=== PATIENT | female | born 1955 | race Caucasian/White ===

== ENCOUNTER 2018-03-10 08:04 | Observation (INO) | payer OTHER ==
--- NOTE | 2018-03-10 08:31 | EDPHY ---
HPI/HX/ROS/PE/MDM Narrative: CHIEF COMPLAINT: Dizzy, irregular heart rate HISTORY OF PRESENT ILLNESS: The patient is a 62 y/o female with a history of SVT requiring an ablation and hypertension complaining of an intermittent feeling of dizziness and having an irregular heart beat onset at 07:30 this morning, 1 hour ago. Around 10 months ago she had an ablation following an episode of SVT. Her symptoms today are different as she feels like her heart rate is more irregular than with prior SVT episodes. Last week she felt lightheaded and had palpitations, so Dr. Moreira (her PCP at [place]) monitored the patient with a Holter monitor for 48 hours. [address] to work today, she became lightheaded and dizzy. When she got to work, these symptoms worsened and she developed heart palpations associated with feeling like she might pass out and shortness of breath. She denies chest pain. These symptoms are currently intermittent and last under a minute when they begin. With prior episodes she did not feel like she was going to pass out. Around 1 month ago she stopped taking Eliquis and Bystolic, but started Metoprolol; she denies change in symptoms with change in medications. No fever, chills, vomiting, diarrhea, urinary complaints, headache. Followed by a traffic i manager at [facility]. Followed by Dr. Moreira at [place] ([phone]) REVIEW OF SYSTEMS: Aside from elements discussed in the HPI, a comprehensive 10-point review of systems was reviewed and is negative. PAST MEDICAL HISTORY: SVT requiring ablation, hypertension, breast cancer SOCIAL HISTORY: Friend at bedside, lives in [facility] VITAL SIGNS: Reviewed by me GENERAL: Well-developed, well-nourished, resting comfortably in no respiratory distress. HEENT: Atraumatic. Eyes: No icterus, no injection. Mouth: moist mucous membranes. No erythema or lesions. Neck: supple with no adenopathy. LUNGS: Clear to auscultation bilaterally, no wheezes, rhonchi or rales. CARDIAC: Irregular heart rate with frequent premature beats, no rubs, murmurs or gallops. ABDOMEN: Soft, nontender, nondistended, bowel sounds normal. BACK: No CVA tenderness. EXTREMITIES: No trauma. No edema. Range of motion is normal throughout. NEURO: Alert and oriented, grossly nonfocal. SKIN: Warm and dry, no rash. PSYCHIATRIC: Normal mentation, no agitation. Portions of this note were transcribed by a emergency medicine medical director. I personally performed a history, physical exam, medical decision making, and confirmed accuracy of information the transcribed note. ED Course: The patient is a 62 y/o female with a history of SVT requiring an ablation and hypertension presenting with an intermittent feeling of dizziness and having an irregular heart rate onset at 07:30 this morning, 1 hour ago. On exam she has an irregular heart rate with frequent premature beats. Labs, EKG ordered. 0837: 12-LEAD EKG: Please see the full report in [facility]. My interpretation: Sinus rhythm with a rate of 61, multiple ventricular premature complexes. 0845: Consulted with Dr. Moreira's MARKET RISK SPECIALIST regarding this patient. 0945: Patient is hypertensive 203/105 and becomes bradycardic during her dizzy episodes. 1000: Reassessed patient and discussed laboratory and imaging findings. I have discussed plan for admission which she is comfortable with. 1013: Consulted with hospitalist service, Dr. Burton accepts admission of this patient. Troponin lab ordered; 10mg IV Hydralazine administered prior to being moved to the floor. - Data Points Laboratory Results: Laboratory Results 03/10/18 08:50 03/10/18 08:50 03/10/18 03/10/18 03/10/18 08:54 08:50 08:50 WBC RBC Hgb Hct MCV MCH MCHC RDW Plt Count MPV Neut % (Auto) Lymph % (Auto) [place] % (Auto) Eos % (Auto) Baso % (Auto) Nucleat RBC Rel Count Absolute Neuts (auto) Absolute Lymphs (auto) Absolute Monos (auto) Absolute Eos (auto) Absolute Basos (auto) Absolute Nucleated RBC Immature Gran % Immature Gran # Sodium 143 mEq/L mEq/L (135-145) Potassium 4.2 mEq/L mEq/L (3.3-5.0) Chloride 105 mEq/L mEq/L (97-110) Carbon Dioxide 27 mEq/l mEq/l (22-31) Anion Gap 11 mEq/L mEq/L (8-16) BUN 20 mg/dL mg/dL (7-23) Creatinine 0.9 mg/dL mg/dL (0.6-1.0) Estimated GFR > 60 Glucose 76 mg/dL mg/dL (70-100) Calcium 9.6 mg/dL mg/dL (8.5-10.4) POC Troponin I 0.01 ng/mL ng/mL (0.00-0.08) Troponin I Pending 03/10/18 08:50 WBC 6.03 10^3/uL 10^3/uL (3.80-9.50) RBC 4.36 10^6/uL 10^6/uL (4.18-5.33) Hgb 13.6 g/dL g/dL (12.6-16.3) Hct 40.5 % % (38.0-47.0) MCV 92.9 fL fL (81.5-99.8) MCH 31.2 pg pg (27.9-34.1) MCHC 33.6 g/dL g/dL (32.4-36.7) RDW 13.4 % % (11.5-15.2) Plt Count 252 10^3/uL 10^3/uL (150-400) MPV 9.8 fL fL (8.7-11.7) Neut % (Auto) 56.5 % % (39.3-74.2) Lymph % (Auto) 23.9 % % (15.0-45.0) [place] % (Auto) 14.4 % H % (4.5-13.0) Eos % (Auto) 3.8 % % (0.6-7.6) Baso % (Auto) 1.2 % % (0.3-1.7) Nucleat RBC Rel Count 0.0 % % (0.0-0.2) Absolute Neuts (auto) 3.41 10^3/uL 10^3/uL (1.70-6.50) Absolute Lymphs (auto) 1.44 10^3/uL 10^3/uL (1.00-3.00) Absolute Monos (auto) 0.87 10^3/uL H 10^3/uL (0.30-0.80) Absolute Eos (auto) 0.23 10^3/uL 10^3/uL (0.03-0.40) Absolute Basos (auto) 0.07 10^3/uL 10^3/uL (0.02-0.10) Absolute Nucleated RBC 0.00 10^3/uL 10^3/uL (0-0.01) Immature Gran % 0.2 % % (0.0-1.1) Immature Gran # 0.01 10^3/uL 10^3/uL (0.00-0.10) Sodium Potassium Chloride Carbon Dioxide Anion Gap BUN Creatinine Estimated GFR Glucose Calcium POC Troponin I Troponin I Point of Care Test Results: Chemistry 03/10/18 08:54 POC Troponin I 0.01 ng/mL ng/mL (0.00-0.08) General Time Seen by Provider: 03/10/18 08:24 Initial Vital Signs: Initial Vital Signs Temperature (C) 36.5 C 03/10/18 08:09 Heart Rate 72 03/10/18 08:09 Respiratory Rate 18 03/10/18 08:09 Blood Pressure 185/97 H 03/10/18 08:09 O2 Sat (%) 96 03/10/18 08:09 O2 Delivery Mode Nasal Cannula O2 (L/minute) 97 Allergies/Adverse Reactions: No Known Allergies Allergy (Unverified 03/10/18 08:07) Home Medications: Medication Instructions Recorded Acyclovir 03/10/18 Levothyroxine 03/10/18 Lovastatin 03/10/18 Multivitamin (*) 03/10/18 Omeprazole 03/10/18 Departure - Departure Disposition: [facility] Inpatient Acute Clinical Impression: Palpitations, Ventricular premature complexes, Lightheaded Hypertension Qualifiers: Hypertension type: unspecified Qualified Code(s): I10 - Essential (primary) hypertension Condition: Fair Referrals: JOSEPHINE MOREIRA [Other] - As per Instructions Report Scribed for: Roselyn Hicks Report Scribed by: Lou Tolentino Date of Report: 03/10/18 Time of Report: 10:07
[2018-03-10 09:02] LABS: PLATELET COUNT 252 10^3/uL (150-400)
[2018-03-10] MEDS ORDERED: hydrALAZINE 20 MG/ML VIAL IVP ONE (10:15)
[2018-03-10] MEDS ORDERED: ONDANSETRON 4 MG/2 ML VIAL IVP PRN (12:42)
[2018-03-10] MEDS ORDERED: ONDANSETRON DISINTEGRATING 4 MG TAB PO PRN (12:42)
--- NOTE | 2018-03-10 12:51 | CPEKG ---
Heart Rate: 61 RR Interval: 984 P-R Interval: 140 QRSD Interval: 90 QT Interval: 400 QTC Interval: 403 P [place]: 53 QRS [place]: 14 T Wave [place]: 25 EKG Severity - ABNORMAL ECG - EKG Impression: SINUS RHYTHM EKG Impression: MULTIPLE VENTRICULAR PREMATURE COMPLEXES Electronically Signed By: Lalit Berry 15-Mar-2018 02:39:46
[2018-03-10] MEDS ORDERED: hydrALAZINE 20 MG/ML VIAL IVP PRN (12:52)
[2018-03-10] MEDS: amLODIPine BESYLATE 5 MG TAB PO SCH (12:56)
--- NOTE | 2018-03-10 13:16 | GHP ---
[f rep st] HISTORY AND PHYSICAL DATE OF ADMISSION: 03/10/2018 CHIEF COMPLAINT: Dizziness. HISTORY OF PRESENT ILLNESS: This is a 62-year-old female with a history of SVT, status post ablation who presents with dizziness. She had her SVT ablation about 10 months ago. She was placed on Bysto lic, as well as Eliquis. She stopped these in mid December and had been off them for about a month. Du ring that time, she had a few occasional episodes of brief lightheadedness. She then had a symptomat ic recurrence of her SVT overnight. Because of this, she saw her primary care physician, Dr. Bradshaw , who had provided her with a Holter monitor. She just finished that last week, turned it in, deborah law, has not gotten the results of that. She did have a second episode of SVT while on the monitor. Jessy Bradshaw had also started her on metoprolol at that time. Today, she presented to the ED and had m ultiple recurrent episodes today while she was at work. She did not faint; however, she felt as thou gh she was going to faint. She also describes a strong heartbeat and she points to her neck when she describes this. She is not really having any chest pain, shortness of breath. In the emergency dep artment, she had recurrent episodes of this during which time she was reported to be bradycardic. PAST MEDICAL/SURGICAL HISTORY: 1. SVT, status post ablation as above. 2. Knee surgery. 3. Breast cancer. 4. Hyperlipidemia. MEDICATIONS: Please see medication reconciliation. ALLERGIES: No known drug allergies. FAMILY HISTORY: Notable for a brain tumor in her mother and father of an aneurysm. SOCIAL HISTORY: She does not smoke. She drinks alcohol. REVIEW OF SYSTEMS: 10-point review of systems is conducted and is negative, except per HPI. PHYSICAL EXAMINATION: VITAL SIGNS: Blood pressure 191/111, heart rate 84, respiration rate 17, satu rating 99% on 2 L, temperature is 36.2. GENERAL: The patient is a very pleasant female who is resti ng comfortably, somewhat tearful. HEENT: Normocephalic, atraumatic. CARDIOVASCULAR: Regular rate and rhythm when I am auscultating her. She has a systolic murmur heard best at the right upper taylor al border. It is 1/6. PULMONARY: Lungs clear to auscultation bilaterally. ABDOMEN: Soft, nontend er, nondistended. SKIN: No rash. : No Field. NEUROLOGIC: Exam shows her to be alert and orien feliciano x3. She is moving all extremities. EXTREMITIES: Bilateral lower extremities have trace lower e xtremity edema. PSYCHIATRIC: Exam shows her to be mildly tearful regarding all of her medical condi tions. LABORATORY DATA: CBC is normal. Basic metabolic panel is normal. Troponin is negative. DATA: 1. I discussed this with Sharon Elmore, Cardiology will consult. 2. I reviewed her chart, including her note by Dr. Hicks. 3. I reviewed her telemetry, which showed frequent PVCs. 4. EKG, which I personally viewed and interpreted, shows sinus rhythm. She has 2 PVCs on the strip. IMPRESSION/PLAN: 1. Presyncope: Certainly due to arrhythmia. Unclear if she is having a bradyarrhythmia causing thi s or if these sensations are from premature ventricular contractions. She had been started on metopr olol relatively recently. For now, will continue to monitor her on telemetry, we will hold her metop rolol. Cardiology has been consulted and will see her. Further recommendations will depend on her c linical course. 2. Hypertension/bradycardia: We will get CT head to rule out any intracranial pathology. 3. Hypertension: She received some hydralazine in the emergency department. I will avoid katia blo ckers and give her 5 mg of Norvasc now. This will need to be followed. I will write her for p.r.n. hydralazine as well for the time being. /[id number]/MODL
[2018-03-10] MEDS: ACETAMINOPHEN 325 MG TAB PO PRN (16:45)
--- NOTE | 2018-03-10 17:13 | GHP ---
[f rep st] HISTORY AND PHYSICAL DATE OF ADMISSION: 03/10/2018 We were asked to consult by Dr. Alhaji Burton, hospitalist, for her hypertension and palpitations. HISTORY OF PRESENT ILLNESS: Yolande is a 62-year-old female who has a past history of supraventricular tachycardia with ablation and hypertension. She has been followed closely by her chief arson division in [facility] at [facility], Dr. Blevins is her primary chief arson division. Her primary care doc tor is Dr. Segundo Bonds, in [place], also follows her closely. In February 2017, she did have atrial fibrillation ablation. She was on Eliquis in [facility] following that procedure. In December of 2016, she had an EP study and at that time, they were able to induce the atrial fibrillation and stop the p rocedure at that time. Subsequent PVI was done in February 2017 for the AFib. There was no cardioversio n done at that time. She reports that in early December, she was taken off the Bystolic and the Eliquis . She had SVT approximately a week ago and had a 48-hour Holter monitor done and had not received re sults, however, she was told that she did have some SVT on the monitor. She was then started on meto prolol 25 mg once daily. She is unsure if it is an extended-release or a tartrate dose. This mornin g while driving to work, she started noticing palpitations and then had what felt like 2 quick pops a nd then felt lightheaded, and after that, the episodes continued after she got to work. She then had an exceptionally strong palpitation, which made her feel like she was going to black out. She then went to the emergency room for further evaluation. At the time of my visit, she is suffering from a residual headache with no vision problems. Her recent blood pressure was 163/83 and her heart rate i s regular at 84. She is resting comfortably and is to go down soon for a head CT. PAST MEDICAL HISTORY: 1. SVT, status post ablation procedure. 2. Hypertension. 3. Hyperlipidemia. 4. Breast cancer. 5. She has had knee surgery. MEDICATION LIST: As per medication reconciliation. ALLERGIES: She has no known drug allergies. FAMILY HISTORY: 1. Father of an aneurysm. 2. Mother had a brain tumor. 3. No other cardiac family history. SOCIAL HISTORY: She lives in [facility]. She does not smoke or drink. REVIEW OF SYSTEMS: A 10-point review was done and all negative with the exception of that mentioned in the HPI. PHYSICAL EXAM: VITAL SIGNS: Blood pressure 163/83, heart rate 84, SaO2 was 99% with oxygen at 2 L, respirations 16, temperature 36.2. GENERAL: She is pleasant with no immediate concerns, is somewhat anxious. HEENT: Normocephalic. CARDIOVASCULAR: Heart rate is regular. No murmur, rubs, or muhammad ps are noted. PULMONARY: Lung sounds are clear to auscultation bilaterally. No wheezes, rales, or rhonchi. ABDOMEN: Soft and nontender. SKIN: Warm and dry. NEUROLOGIC: She is alert and oriented x3. EXTREMITIES: She has no bilateral edema. PSYCHIATRIC: She is alert and oriented with no dist ress. INVESTIGATION: EKG shows a heart rate of 61 with sinus rhythm. She does have PVCs noted. LABORATORIES: On admission, sodium 143, potassium 4.2, BUN 20, creatinine 0.9, glucose 76, calcium 9 .6. Troponin less than 0.012. Hematology: White blood cells 6.03, hemoglobin 13.6, hematocrit 40.5 . Telemetry shows sinus rhythm with a rate of 80 with occasional PVCs noted. IMPRESSION AND PLAN: 1. Hypertension. On admission, her blood pressure was elevated at 200/110. She was given hydralazi ne 10 mg IV push in the emergency room and later given Norvasc 5 mg, which did bring her blood pressu re down to 163/83. We will continue to monitor her blood pressures closely and make adjustments as n eeded. 2. Cardiac palpitations, likely related to her known supraventricular tachycardia. She has not had recent atrial fibrillation since her ablation therapy in February of 2017. We will continue to monitor c losely. She did have a Holter monitor done by her primary care physician, which apparently showed so me SVT; that information does need to be obtained, we will contact his office. Her primary care doct or is Dr. Segundo Bonds D.O., in [place]. She is also followed closely by Dr. Otis ramon at [facility]. There records have been obtain ed and reviewed. We will ask Dr. Lalit Berry, radar tester, to review the information and furt her make recommendations for this patient's care. 3. Of note, she had been on Bystolic and Eliquis until early December of 2017, when she was taken off t he medication by her chief arson division. We will monitor closely for any indication of atrial fibrillation and the need for anticoagulation therapy. She had been restarted on metoprolol 25 mg once daily. H owever, it is not on her medication list. We will consider restarting the metoprolol if indicated. Again, we will allow Dr. Berry to make a determination of appropriate medication for her treatment. 4. She did have a sleep apnea study with an overnight oxygen study showing her oxygen levels dipping to 68%, by her report. There has been no formal sleep study done to follow this up. This will need to be readdressed as this could be contributing to some of her arrhythmia problems. At this time, she currently is stable and resting comfortably. /[id number]/MODL
[2018-03-10] MEDS ORDERED: PRAVASTATIN SODIUM 20 MG TAB PO SCH (21:00)
[2018-03-11] MEDS ORDERED: LEVOTHYROXINE 125 MCG TAB PO SCH (06:00)
[2018-03-11] MEDS: ACETAMINOPHEN 325 MG TAB PO PRN (07:17)
[2018-03-11] MEDS: amLODIPine BESYLATE 5 MG TAB PO SCH (07:54)
[2018-03-11] MEDS ORDERED: ACYCLOVIR 400 MG TAB PO SCH (09:00)
[2018-03-11] MEDS ORDERED: PANTOPRAZOLE SODIUM 40 MG TAB PO SCH (09:00)
[2018-03-11] MEDS ORDERED: VITAMIN B COMPLEX 1 EA CAP/TAB PO SCH (09:00)
--- NOTE | 2018-03-11 09:45 | ASMTCASEMG ---
Living Arrangements What is your living Answers: With Spouse arrangement? Who do you live with? Type Of Residence What kind of residence do Answers: House you live in? Discharge Plan Comments Coordination Status Comments Notes: Pt is a 62 y/o female admitted for hypertensive, dizziness and bradycardia. Pt will most likely d/c without any needs when medically stable. No therapies ordered at this time. CM available for changes. Plan: Independent Date Signed: 03/11/2018 09:44 AM Electronically Signed By:ANIYA Sotomayor
[2018-03-11 12:28] VITALS: BP 141/94
--- NOTE | 2018-03-11 12:54 | GDS ---
[f rep st] DISCHARGE SUMMARY DIAGNOSES: 1. Presyncope. 2. Atrial fibrillation. 3. History of supraventricular tachycardia, status post ablation. 4. Hypothyroid. 5. Hypertension. HOSPITAL COURSE: A 62-year-old female, admitted with presyncope. She was found to have significant ectopy in the emergency department. She has a history of SVT, status post ablation. She is followed by Dr. Resendiz with Cardiology. She was admitted here, placed on telemetry. Head CT scan was neg ative for anything acute. She was seen by Dr. Hernández with electrophysiology who has reviewed all of he r recent Holter monitor tracings. He feels that these are all consistent with atrial fibrillation. His recommendation at this point is to place her on flecainide 50 mg p.o. twice daily, Cardizem 120 m g p.o. daily as well as restart anticoagulation with Eliquis. She has been given prescriptions for a ll these. She feels better and has not had any significant presyncopal episodes today. She will fol low up closely with her medical information officer, Dr. Resendiz. She is otherwise discharged in stable condition . /[id number]/MODL
== END 2018-03-11 14:17 | disposition home or self-care (01) ==
LOC: F2W 11:17
PROVIDERS: ADMIT Student in an Organized Health Care Education/Training Program; ATTEND Student in an Organized Health Care Education/Training Program
DX: R55 Syncope and collapse (principal); I48.91 Unspecified atrial fibrillation; E03.9 Hypothyroidism, unspecified; I10 Essential (primary) hypertension
CPT/HCPCS: 70450; 93005; G0378; 84484-PO; J0360